=== PATIENT | male | born 1945 | race Caucasian/White ===

== ENCOUNTER → 2020-05-07 | Outpatient (CLI) | payer MEDICARE | END | disposition home or self-care (01) | LOC: CANPRESDC → DAH 10:00 → EDSTATUS 05-14 07:00 | PROVIDERS: ATTEND Internal Medicine Gastroenterology | DX: Z20.828 Contact with and (suspected) exposure to other viral communicable diseases (principal); R93.3 Abnormal findings on diagnostic imaging of other parts of digestive tract; R13.10 Dysphagia, unspecified; R94.5 Abnormal results of liver function studies | CPT/HCPCS: C9803; U0003 ==

== ENCOUNTER 2020-08-07 08:54 | Day surgery (SDC) | payer MEDICARE ==
[~2020-08-07] VITALS: Ht 185.4 cm; Wt 72.6 kg
[2020-08-07] VITALS (17 sets, daily range): BP systolic 108–121; BP diastolic 54–73
[~2020-08-07 08:54] MED LIST: ESOM20CA39 PO; FENT1PAT61 TD; GABA300C PO; HYDR-4068 PO; METO-391 PO; MV-M1TAB20 PO; PEMB100V IV; SENN1TAB45 PO; SODIUM CHLORIDE 0.9% 1000ML 1,000 ML IV ONE; VITA1CAP85 PO
[2020-08-07] MEDS ORDERED: IOHEXOL-350 50ML VIAL IV ONE (09:45)
[2020-08-07] MEDS ORDERED: INDOMETHACIN 50 MG SUPP.RECT RC SCH (10:15)
[2020-08-07] MEDS ORDERED: MIDAZOLAM HCL 1 MG/ML 2ML VIAL ONE (10:47)
[2020-08-07] MEDS ORDERED: SUCCINYLCHOLINE 200MG/10ML SYR ONE (10:47)
[2020-08-07] MEDS ORDERED: ONDANSETRON HCL 4 MG/2 ML VIAL ONE (10:47)
[2020-08-07] MEDS ORDERED: FENTANYL CITRATE PF 50 MCG/1 ML 2ML VIAL ONE (10:47)
== END 2020-08-07 13:30 | disposition home or self-care (01) ==
LOC: DAH 08:54
PROVIDERS: ATTEND Internal Medicine Gastroenterology
DX: R74.8 Abnormal levels of other serum enzymes (principal); R94.5 Abnormal results of liver function studies; Z20.822 Contact with and (suspected) exposure to COVID-19; K83.8 Other specified diseases of biliary tract; R13.10 Dysphagia, unspecified; I10 Essential (primary) hypertension; J44.9 Chronic obstructive pulmonary disease, unspecified; Z85.118 Personal history of other malignant neoplasm of bronchus and lung; Z87.891 Personal history of nicotine dependence; Z98.890 Other specified postprocedural states; Z79.899 Other long term (current) drug therapy; Z90.49 Acquired absence of other specified parts of digestive tract; Z90.89 Acquired absence of other organs; Z85.89 Personal history of malignant neoplasm of other organs and systems
CPT/HCPCS: 36415; 43262; 43273; 74328; 82150; 82378; 88112; 88305; A4215 ×2; A4221; A4222; A4223; A4606; A4657 ×2; A4663; C1769; C9803; J0330; J2250; J2405; J3010; J7030; Q9967; U0003; 43275; 74330